=== PATIENT | male | born 1990 | race Caucasian/White ===

== ENCOUNTER → 2016-11-11 11:44 | Emergency (ER) | payer OTHER ==
[2016-11-11 11:33] LABS: INFLUENZA A POS (NEG); INFLUENZA B NEG (NEG)
== END | disposition home or self-care (01) ==
LOC: CFTX 11:44
PROVIDERS: Nurse Practitioner
DX: J10.1 Influenza due to other identified influenza virus with other respiratory manifestations (principal); Z98.890 Other specified postprocedural states
CPT/HCPCS: 87651; 87804; 99283